=== PATIENT | female | born 1995 | race Two or more races ===

== ENCOUNTER → 2020-02-28 | Outpatient (CLI) | payer MEDICAID, OTHER ==
[~2020-02-28] MED LIST: FERR-71 PO; FOLI-43 PO; IBUP-2028 PO; PREN1TAB78 PO
== END | disposition home or self-care (01) ==
LOC: LAB 11:32
PROVIDERS: ATTEND Obstetrics & Gynecology
DX: Z03.818 Encounter for observation for suspected exposure to other biological agents ruled out (principal)
CPT/HCPCS: C9803; U0003

== ENCOUNTER 2022-12-21 00:31 | Inpatient (IN) | payer MEDICAID, OTHER ==
[2022-12-21] VITALS (8 sets, daily range): BP systolic 92–113; BP diastolic 53–77
[~2022-12-21] VITALS: Ht 160 cm; Wt 83.0 kg
[2022-12-21 01:16] LABS: BASOPHILS % 0.3 % (0.0-2.0); EOSINOPHILS % 0.1 % (0.0-5.0); HEMATOCRIT. 39.5 % (36.0-48.0); HEMOGLOBIN. 13.6 g/dL (12.0-16.0); LYMPHOCYTES % 15.7 % (20.0-50.0); MEAN CORPUSCULAR HEMOGLOBIN 30.1 pg (28.0-32.0); MEAN CORPUSCULAR VOLUME 87.7 fL (81.0-99.0); MEAN PLATELET VOLUME 8.3 fl (7.4-10.4); MONOCYTES % 10.4 % (2.0-8.0); NEUTROPHILS % 73.5 % (40.0-76.0); PLATELET 305 x1000/uL (130-400); RED CELL DISTRIBUTION WIDTH 12.9 % (11.6-14.6)
[2022-12-21 01:20] LABS: CHLORIDE 104 mEq/L (98-107)
[2022-12-21 01:23] LABS: INR 1.1; PROTHROMBIN TIME 11.7 sec (9.6-11.0)
[2022-12-21 04:45] LABS: CLARITY URINE CLOUDY (CLEAR); COLOR URINE YELLOW (YELLOW); KETONES URINE NEGATIVE (NEGATIVE); LEUKOCYTE ESTERASE URINE 3+ (NEGATIVE); NITRITE URINE NEGATIVE (NEGATIVE); OCCULT BLOOD URINE TRACE (NEGATIVE); PROTEIN URINE NEGATIVE (NEGATIVE); SPECIFIC GRAVITY URINE 1.007 (1.005-1.030)
[2022-12-21] MEDS ORDERED: ASPIRIN 81MG TABLET PO ONE (05:45)
[2022-12-21] MEDS ORDERED: CEFTRIAXONE 1GM PREMIX 50 ML IV ONE (06:45)
[2022-12-21 07:03] LABS: HCG SCREEN NEGATIVE
[2022-12-21] MEDS ORDERED: IOHEXOL-350 100 ML BOTTLE ONE (12:30)
[2022-12-21] MEDS ORDERED: IPRATROPIUM/ALBUTEROL 0.5-3(2.5)MG/3ML NEB HHN PRN (15:30)
[2022-12-21] MEDS ORDERED: ACETAMINOPHEN 325MG TABLET PO PRN (15:30)
[2022-12-21] MEDS ORDERED: HYDROCODONE/ACETAMINOPHEN 5/325MG TABLET PO PRN (15:30)
[2022-12-21] MEDS ORDERED: CLONIDINE 0.1MG TABLET PO PRN (15:30)
[2022-12-21] MEDS ORDERED: ONDANSETRON HCL 4MG/2ML INJ IV PRN (15:30)
[2022-12-21] MEDS ORDERED: NALOXONE HCL 0.4MG/ML VIAL IV PRN (15:30)
[2022-12-21] MEDS: ENOXAPARIN 40MG/0.4ML SYR SUBCUT SCH (18:44)
[2022-12-21] MEDS: LEVOFLOXACIN 500MG PREMIX 100 ML IV SCH (18:54)
[2022-12-21 22:25] LABS: CREATINE KINASE MB FRACTION 4.1 ng/mL (0.5-3.6)
[2022-12-22 04:00] VITALS: BP 97/67
[2022-12-22 05:58] LABS: BASOPHILS % 0.5 % (0.0-2.0); HEMATOCRIT. 36.4 % (36.0-48.0); HEMOGLOBIN. 12.6 g/dL (12.0-16.0); LYMPHOCYTES % 35.4 % (20.0-50.0); MEAN CORPUSCULAR HEMOGLOBIN 30.6 pg (28.0-32.0); MEAN CORPUSCULAR VOLUME 88.3 fL (81.0-99.0); MEAN PLATELET VOLUME 8.7 fl (7.4-10.4); MONOCYTES % 10.1 % (2.0-8.0); PLATELET 302 x1000/uL (130-400); RED BLOOD CELL COUNT 4.13 mill/uL (4.2-5.4); RED CELL DISTRIBUTION WIDTH 12.7 % (11.6-14.6)
[2022-12-22 06:19] LABS: CHLORIDE 106 mEq/L (98-107)
[2022-12-22 06:27] LABS: HDL CHOLESTEROL 34 mg/dL (40-59); LDL CHOLESTEROL 109 mg/dL (5-100)
[2022-12-22 06:31] LABS: CREATINE KINASE MB FRACTION 3.1 ng/mL (0.5-3.6)
[2022-12-22 08:00] VITALS: BP 121/73
[2022-12-22 09:47] LABS: UCG SCREEN NEGATIVE
[2022-12-22] MEDS: ASPIRIN 81MG TABLET PO SCH (09:54)
[2022-12-22] MEDS ORDERED: METOPROLOL TARTRATE 50MG TABLET PO NR ×2 (11:45→14:00)
[2022-12-22 12:00] VITALS: BP 113/70
[2022-12-22 12:05] LABS: *AMPHETAMINES SCREEN URINE NEGATIVE (NEGATIVE); *BARBITURATES SCREEN URINE NEGATIVE (NEGATIVE); *BENZODIAZEPINES SCREEN URINE NEGATIVE (NEGATIVE); *COCAINE SCREEN URINE NEGATIVE (NEGATIVE); CANNABINOID URINE SCREEN NEGATIVE (NEGATIVE); METHADONE URINE SCREEN NEGATIVE (NEGATIVE); OPIATES URINE SCREEN NEGATIVE (NEGATIVE); PHENCYCLIDINE URINE SCREEN NEGATIVE (NEGATIVE)
[2022-12-22] MEDS ORDERED: NITROGLYCERIN SPRAY/4.9GM CAN TL ONE (14:45)
[2022-12-22] MEDS ORDERED: IOHEXOL-350 100 ML BOTTLE ONE (15:19)
[2022-12-22 16:00] VITALS: BP 110/41
[2022-12-22] MEDS: LEVOFLOXACIN 500MG PREMIX 100 ML IV SCH (17:26)
[2022-12-22] MEDS: ENOXAPARIN 40MG/0.4ML SYR SUBCUT SCH (17:26)
[2022-12-22 19:26] VITALS: BP 98/49
[2022-12-22 23:26] VITALS: BP 111/70
[2022-12-23 03:26] VITALS: BP 113/85
[2022-12-23 08:15] VITALS: BP 106/68
[2022-12-23] MEDS: ASPIRIN 81MG TABLET PO SCH (09:17)
[2022-12-23] MEDS ORDERED: LEVOFLOXACIN 500MG TABLET PO SCH (11:00)
[2022-12-29 17:07] LABS: ANA IFA Negative (.)
== END 2022-12-23 14:30 | disposition home or self-care (01) | DRG 203 ==
LOC: ER 00:31 → 3WST 06:44
PROVIDERS: ADMIT Internal Medicine; ATTEND Internal Medicine
DX: M94.0 Chondrocostal junction syndrome [Tietze] (principal); H57.12 Ocular pain, left eye; N39.0 Urinary tract infection, site not specified; B96.89 Other specified bacterial agents as the cause of diseases classified elsewhere; Z98.891 History of uterine scar from previous surgery; Z82.3 Family history of stroke
CPT/HCPCS: 36415; 71045; 71275; 75571; 80053; 80061; 80305; 80320; 81003; 81025; 82553; 83036; 83880; 84145; 84484; 84703; 85025; 85379; 85651; 86038; 86141; 86256; 87804; 93005; 93306; 99285; J0696; J1650; J1956; Q9967; G0480